=== PATIENT | male | born 1965 | race Two or more races ===

== ENCOUNTER 2021-01-28 14:23 | Emergency (ER) | payer BC, OTHER ==
[~2021-01-28] VITALS: Ht 175.3 cm; Wt 74.8 kg
[2021-01-28] MEDS ORDERED: cloNIDine HCL 0.1 MG TAB PO ONE (15:00)
[2021-01-28] MEDS ORDERED: cloNIDine HCL 0.1 MG TAB ONE (15:02)
[2021-01-28 15:07] LABS: Basophils # (auto) 0.1 10 ^3/uL (0-0.2); Basophils % (auto) 0.8 % (0.0-2.0); Eosinophils # (auto) 0.1 10 ^3/uL (0-0.8); Eosinophils % (auto) 1.3 % (0.0-7.0); Hemoglobin 15.6 g/dL (13.5-17.5); Lymphocytes # (auto) 1.7 10 ^3/uL (0.4-5.4); Lymphocytes % (auto) 21.1 % (10.0-50.0); Mean Corpuscular Hemoglobin 33.8 pg (28.0-32.0); Mean Corpuscular Hgb Conc. 34.6 g/dL (32.0-36.0); Mean Corpuscular Volume 97.5 fL (80.0-100.0); Monocytes # (auto) 0.5 10 ^3/uL (0-1.3); Monocytes % (auto) 5.5 % (0.0-12.0); Neutrophils # (auto) 5.9 10 ^3/uL (1.6-8.6); Neutrophils % (auto) 71.3 % (37.0-80.0); Nucleated Red Blood Cells % 0.1 %; Red Blood Cells 4.62 10^6/uL (4.5-5.90); Red Cell Distribution Width 12.9 % (11.8-14.3); White Blood Cell 8.2 10^3/uL (4.4-10.8)
[2021-01-28 15:27] LABS: Albumin 4.1 g/dL (3.4-5.0); Calcium 9.2 mg/dL (8.5-10.1); Potassium 4.3 mmol/L (3.5-5.1)
[2021-01-28 15:29] LABS: BUN/Creatinine Ratio 13.9; Bilirubin, Total 0.5 mg/dL (0.2-1.0); Total Protein 7.4 g/dL (6.4-8.2)
[2021-01-28 15:33] LABS: Urine Bacteria NONE SEEN /hpf (None Seen); Urine Mucus FEW (None Seen); Urine WBC <1 /hpf (0 - 3)
[2021-01-28] MEDS ORDERED: OXYCODONE W/ ACETAMINOPHEN 5/325MG TABLET PO ONE (16:00)
[2021-01-28 16:06] LABS: Urine Specific Gravity 1.015 (1.001-1.035)
[2021-01-28 16:07] LABS: Urine Blood TRACE /uL (Negative)
[2021-01-28 18:18] VITALS: BP 149/84
[2021-01-28] MEDS ORDERED: METR500T PO (18:18)
[2021-01-28] MEDS ORDERED: PERCOT PO (18:18)
[2021-01-28] MEDS ORDERED: CIPR-273 PO (18:18)
== END 2021-01-28 18:28 | disposition home or self-care (01) ==
LOC: ER 14:23
DX: K57.30 Diverticulosis of large intestine without perforation or abscess without bleeding (principal)
CPT/HCPCS: 36415; 74176; 80053; 81001; 83690; 85025; 93005

== ENCOUNTER 2023-04-04 14:45 | Inpatient (IN) | payer BC ==
[~2023-04-04] VITALS: Ht 172.7 cm; Wt 75.0 kg
[~2023-04-04 14:45] MED LIST: CIPR-273 PO; METR500T PO; PERCOT PO
[2023-04-04 15:34] LABS: Basophils # (auto) 0.1 10 ^3/uL (0-0.2); Hemoglobin 16.8 g/dL (13.5-17.5); Monocytes # (auto) 0.6 10 ^3/uL (0-1.3)
[2023-04-04 15:38] LABS: Eosinophils # (auto) 0.2 10 ^3/uL (0-0.8); Eosinophils % (auto) 2.3 % (0.0-7.0); Hematocrit 47.7 % (41.0-53.0); Lymphocytes # (auto) 2.8 10 ^3/uL (0.4-5.4); Mean Corpuscular Hemoglobin 34.7 pg (28.0-32.0); Mean Corpuscular Hgb Conc. 35.2 g/dL (32.0-36.0); Mean Corpuscular Volume 98.7 fL (80.0-100.0); Monocytes % (auto) 7.6 % (0.0-12.0); Neutrophils # (auto) 4.5 10 ^3/uL (1.6-8.6); Neutrophils % (auto) 55.1 % (37.0-80.0); Nucleated Red Blood Cells % 0.1 %; Red Blood Cells 4.84 10^6/uL (4.5-5.90); Red Cell Distribution Width 12.9 % (11.8-14.3); White Blood Cell 8.2 10^3/uL (4.4-10.8)
[2023-04-04 15:52] LABS: Alanine Aminotransferase 32 U/L (7-40); Albumin 4.9 g/dL (3.2-4.8); Alkaline Phosphatase 62 U/L (46-116); Anion Gap 10 (5-15); Aspartate Aminotransferase 33 U/L (13-40); BUN/Creatinine Ratio 10.6 (10.0-20.0); Bilirubin, Total 0.6 mg/dL (0.2-1.0); Blood Urea Nitrogen 9 mg/dL (9-23); Calcium 9.8 mg/dL (8.5-10.1); Carbon Dioxide 21 mmol/L (20-30); Chloride 105 mmol/L (98-107); Glucose 108 mg/dL (74-106); Potassium 3.6 mmol/L (3.5-5.1); Sodium 136 mmol/L (136-145); Total Protein 7.3 g/dL (5.7-8.2)
[2023-04-04 15:55] LABS: INR 0.95 (0.9-1.15); Partial Thromboplastin Time 29.3 SEC (24.5-34.5)
[2023-04-04 16:41] LABS: Urine Bacteria NONE SEEN /hpf (None Seen); Urine Blood 1+ /uL (Negative); Urine Clarity Clear (Clear); Urine Color Colorless (Yellow); Urine Protein, UAD TRACE (Negative); Urine Specific Gravity 1.014 (1.001-1.035); Urine Urobilinogen Normal (Negative); Urine WBC 1 /hpf (0 - 3)
[2023-04-04] MEDS ORDERED: MORPHINE SULFATE INJ 2 MG/ml SYRG IV PRN (20:30)
[2023-04-04] MEDS ORDERED: hydrALAZINE HCL 20 MG/ML VL IV PRN (20:30)
[2023-04-04] MEDS ORDERED: TEMAZEPAM 15 MG CAP PO PRN (20:30)
[2023-04-04] MEDS ORDERED: NITROGLYCERIN 0.4 MG SL TAB SL PRN (20:30)
[2023-04-04] MEDS ORDERED: ACETAMINOPHEN 325 MG TAB PO PRN (20:30)
[2023-04-04] MEDS ORDERED: ONDANSETRON HCL 4 MG/2 ML VIAL IV PRN (20:30)
[2023-04-04 20:49] LABS: Triglycerides 503 mg/dL (< 150)
[2023-04-04 20:51] LABS: Cholesterol 254 mg/dL (< 200); HDL Cholesterol 67 mg/dL (40-59)
[2023-04-05] MEDS: ATORVASTATIN 20 MG TAB PO SCH (01:48)
[2023-04-05] MEDS: ASPirin 325 MG TAB PO ONE (01:48)
[2023-04-05] MEDS: NITROGLYCERIN 2% OINT 1GM PKG TD ONE (01:55)
[2023-04-05 03:00] VITALS: PULSE 89; RESP 20; O2SAT 98
[2023-04-05 05:33] LABS: Chloride 106 mmol/L (98-107); Potassium 3.4 mmol/L (3.5-5.1); Sodium 136 mmol/L (136-145)
[2023-04-05 05:34] LABS: Anion Gap 10 (5-15); Calcium 9.7 mg/dL (8.5-10.1); Carbon Dioxide 20 mmol/L (20-30)
[2023-04-05 05:39] LABS: BUN/Creatinine Ratio 8.6 (10.0-20.0); Blood Urea Nitrogen 9 mg/dL (9-23); Glucose 110 mg/dL (74-106)
[2023-04-05 08:00] VITALS: PULSE 88; RESP 18; O2SAT 94
[2023-04-05] MEDS: amLODIPine BESYLATE 5 MG TAB PO SCH (11:03)
[2023-04-05] MEDS: ASPirin 81 mg TAB PO SCH (11:03)
[2023-04-05] MEDS ORDERED: POTASSIUM CHLORIDE 20 MEQ, LIDOCAINE 1% (LOCAL ANESTH.) 2 ML in SODIUM CHL 0.9% 100 ML IV ONE (15:00)
[2023-04-05] MEDS: NICOTINE 14 MG/24HR TOPICAL PATCH TD ONE (15:23)
[2023-04-05] MEDS ORDERED: AMLO1TAB22 PO (16:39)
[2023-04-05 17:00] VITALS: BP 140/83; PULSE 86; RESP 16; TEMP 98.3; O2SAT 98
[2023-04-05] MEDS: POTASSIUM CHL 20 Meq TABLET PO ONE (17:26)
[2023-04-05] MEDS ORDERED: FENO1TAB41 PO (17:41)
[2023-04-05] MEDS ORDERED: ASPI-325 PO (17:41)
[2023-04-05] MEDS ORDERED: ATOR40TA52 PO (17:41)
[2023-04-05] MEDS ORDERED: VALS1TAB57 PO (17:41)
[2023-04-05 18:16] VITALS: BP 150/77; TEMP 36.8
[2023-04-05] MEDS ORDERED: ATORVASTATIN 20 MG TAB PO SCH (22:00)
[2023-04-06] MEDS ORDERED: ASPirin 81 mg TAB PO SCH (10:00)
[2023-04-06] MEDS ORDERED: NICOTINE 14 MG/24HR TOPICAL PATCH TD SCH (10:00)
[2023-04-06] MEDS ORDERED: VALSARTAN 80 MG TAB PO SCH (10:00)
== END 2023-04-05 18:58 | disposition home or self-care (01) | DRG 313 ==
LOC: ER 14:45 → TELE 20:25 → TELE-WESTW 04-05 15:53
PROVIDERS: ADMIT Nurse Practitioner; ATTEND Internal Medicine
DX: R07.89 Other chest pain (principal); I16.0 Hypertensive urgency; F17.210 Nicotine dependence, cigarettes, uncomplicated; I34.1 Nonrheumatic mitral (valve) prolapse; E78.5 Hyperlipidemia, unspecified; Z79.899 Other long term (current) drug therapy; Z79.82 Long term (current) use of aspirin
CPT/HCPCS: 36415; 71045; 80048; 80053; 80061; 81001; 82088; 82306; 82607; 83036; 83735; 83880; 84244; 84443; 84484; 85025; 85610; 85730; 93005; 93306; G0378; J2001